=== PATIENT | female | born 1995 | race Caucasian/White ===

== ENCOUNTER 2019-05-12 03:22 | Emergency (ER) | payer BC, MEDICAID ==
[~2019-05-12] VITALS: Ht 167.6 cm; Wt 81.6 kg
[2019-05-12 03:23] VITALS: BP 116/68
--- NOTE | 2019-05-12 03:28 | NUR ---
PT TAKEN TO BED 11
--- NOTE | 2019-05-12 03:32 | NUR ---
Dr. Rhodes examining patient.
--- NOTE | 2019-05-12 03:35 | NUR ---
DR. MIDDLETON EVERENDIRALATED PT. NO NURSING CARE PROVIDED OR NEEDED FOR THIS PATIENT.
--- NOTE | 2019-05-12 03:53 | NUR ---
Patient discharged with v/s stable. Written and verbal after care instructions given and explained. Patient alert, oriented and verbalized understanding of instructions. Ambulatory with steady gait. All questions addressed prior to discharge. ID band removed. Patient advised to follow up with PMD. Rx of AZITHROMYCIN AND GUAIENESIN given. Patient educated on indication of medication including possible reaction and side effects. Opportunity to ask questions provided and answered.
== END 2019-05-12 03:29 | disposition home or self-care (01) ==
LOC: MED 03:22
DX: J20.9 Acute bronchitis, unspecified (principal)
CPT/HCPCS: 99283